=== PATIENT | male | born 1970 | race Caucasian/White ===

== ENCOUNTER 2017-05-12 09:26 | Emergency (ER) | payer OTHER, MEDICAID, SELFPAY ==
--- NOTE | 2017-05-12 09:11 | EKG12_ITS ---
Test Reason : CP Blood Pressure : / mmHG Vent. Rate : 055 BPM Atrial Rate : 055 BPM P-R Int : 170 ms QRS Dur : 106 ms QT Int : 416 ms P-R-T Axes : 048 -61 046 degrees QTc Int : 397 ms Sinus bradycardia Left axis deviation Abnormal ECG Confirmed by MARIN CORTEZ, DENEEN ([id number]), editor book AMRIT MCALLISTER ([id number]) on 05/16/2017 4:40:20 PM Referred By: CHAPINCITO Confirmed By:DENEEN FUNES MD
--- NOTE | 2017-05-12 11:30 | RAD_ITS ---
STUDY: X-RAY CHEST REASON FOR EXAM: Male, 47 years old. Shortness of breath. Weakness. Chest pain. TECHNIQUE: PA and lateral views of the chest. COMPARISON: None. FINDINGS: EKG electrodes are seen. The lungs are clear and expanded. There is no demonstrated pleural abnormality. Normal size heart. Normal mediastinum and sue. Normal visualized pulmonary arteries. Normal visualized aortic arch and descending thoracic aorta. Normal visualized thoracic spine. Normal visualized ribs, clavicles, and shoulders. There is no demonstrated abnormality of the visualized soft tissue structures of the upper abdomen. RAD/Chest PA and Lateral IMPRESSION: Normal x-ray examination of the chest. Electronically Signed: Jewel Lee MD at 12:09 EST Tel [phone], Service support ,
--- NOTE | 2017-05-12 12:02 | EKG12_ITS ---
Test Reason : CP Blood Pressure : / mmHG Vent. Rate : 044 BPM Atrial Rate : 044 BPM P-R Int : 176 ms QRS Dur : 118 ms QT Int : 448 ms P-R-T Axes : 055 -45 018 degrees QTc Int : 383 ms Marked sinus bradycardia Left anterior fascicular block Abnormal ECG Confirmed by MARIN CORTEZ, DENEEN ([id number]), non linear editor AMRIT MCALLISTER ([id number]) on 05/16/2017 4:41:13 PM Referred By: CHAPINCITO Confirmed By:DENEEN FUNES MD
[2017-05-13 09:22] LABS: Anion Gap 9 (5-15); BUN 23 mg/dL (7-18); Calcium,Total 8.7 mg/dL (8.5-10.1); Chloride 109 mmol/L (98-107); Creatinine, Serum 0.92 mg/dL (0.70-1.30); EST Glomerular Filtration Rate 93 mL/min (>60); Est Glom Filt Rate - Afr Amer 0 mL/min (>60); Glucose 106 mg/dL (70-110); Potassium 3.4 mmol/L (3.5-5.1); Sodium Level 140 mmol/L (136-145)
[2017-05-13 09:23] LABS: BNP,B-Type NATRIURETIC PEPTIDE 27.5 pg/mL (0-100)
[2017-05-13 10:17] LABS: Basophil% 0.2 % (0-1); Eosinophils% 0.4 % (0-5); Hematocrit 42.7 % (40-54); Hemoglobin 14.2 g/dl (13.0-16.5); Lymphocyte % 17.1 % (19-41); Mean Corp Hgb Conc 33.3 g/gl (32-36); Mean Corpuscular Hgb 30.6 pg (27.0-32.0); Mean Platelet Vol. 9.8 fl (6.2-12.0); Monocyte% 6.7 % (0-10); Neutrophil % 75.4 % (47-70); POSITIVE COUNT NO; POSITIVE DIFFERENTIAL NO; POSITIVE MORPHOLOGY NO; Platelet Count 213 K/mm3 (150-450); RBC Distribution Width CV 12.6 % (11.6-14.6); RBC Distribution Width SD 42.2 fl (35.1-43.9); Red Blood Count 4.64 M/mm3 (4.6-6.2); White Blood Count 4.9 K/mm3 (4.4-11.0)
[2017-05-13 10:18] LABS: Absolute Lymphocyte Count 0.84 X10^3/ul (0.83-4.51); Absolute Neutrophil Count 3.7 X10^3/uL (2.0-7.7); Basophil# 0.01 X10^3/uL; Eosinophil# 0.02 X10^3/uL; Lymphocyte # 0.84 X10^3/ul (4.0); Monocyte# 0.33 X10^3/uL; Neutrophil # 3.71 X10^3/uL (2.7-7.7)
--- NOTE | 2017-07-08 07:30 | ED.VISSUMM ---
- ER Visit Summary Date of Service: 07/08/17 Chief Complaint: [Chest pain] History of Present Illness: The patient is a 47 M [presents to the emergency department with complaint of chest discomfort that started yesterday. Patient complains of shortness of breath and nausea with it. Patient states that his pain radiates to the arms at times. While driving to work this morning he developed chest pain and increasing shortness of breath. Patient states that he had angioplasty 1 month ago at [facility] in [place]. Patient has a history of [place] and coronary artery disease. Patient has 2 cardiac stents. Patient has a history of hypertension, high cholesterol, and anxiety. Patient denies recent travel or surgery. Patient's pain is currently a 7 out of 10.] Physical Examination: HEENT-PERRLA, EOMI. Cranial nerves II through XII grossly intact. TMs clear. Mucous membranes moist. No adenopathy. Cardiovascular-regular rate and rhythm without murmur or ectopy Lungs-clear to auscultation, chest wall stable without crepitus or subcu emphysema Abdomen-normoactive bowel sounds, soft, nontender, no rebound or rigidity, no peritoneal signs. Extremities-intact ?4, normal range of motion, normal pulses, atraumatic] Test Results: [EKG obtained showed a sinus rhythm with a ventricular rate of 55 bpm with no acute ST segment changes noted. Repeat EKG was unchanged. CBC with differential showed a white blood cell count of 4.9, hemoglobin 14, hematocrit 42, platelets 213. Chemistries unremarkable other than a slightly depressed potassium at 3.4. Troponin was less than 0.015. BMP was normal at 27.5. Chest x-ray was normal. Emergency Department Course and Treatment: [While in the department patient received aspirin and sublingual nitroglycerin which did improve his pain down to 2 out of 10.] Treatment Plan: [Admit for further workup and evaluation of his chest pain.] Disposition: [Admit] Impression: [Chest pain-rule out acute coronary syndrome] This note was generated with [employer] dictation software. It may contain incorrect words, spelling, and punctuation that were not noted in review of the chart prior to signing ED Disposition - Plan for ED Patient: Disposition: Referrals: Romeo Jonas DO [Primary Care Provider] -
--- NOTE | 2017-07-08 07:34 | ED.DCSUM_ITS ---
- ER Visit Summary Date of Service: 07/08/17 Chief Complaint: [Chest pain] History of Present Illness: The patient is a 47 M [presents to the emergency department with complaint of chest discomfort that started yesterday. Patient complains of shortness of breath and nausea with it. Patient states that his pain radiates to the arms at times. While driving to work this morning he developed chest pain and increasing shortness of breath. Patient states that he had angioplasty 1 month ago at [facility] in [place]. Patient has a history of [place] and coronary artery disease. Patient has 2 cardiac stents. Patient has a history of hypertension, high cholesterol, and anxiety. Patient denies recent travel or surgery. Patient's pain is currently a 7 out of 10.] Physical Examination: HEENT-PERRLA, EOMI. Cranial nerves II through XII grossly intact. TMs clear. Mucous membranes moist. No adenopathy. Cardiovascular-regular rate and rhythm without murmur or ectopy Lungs-clear to auscultation, chest wall stable without crepitus or subcu emphysema Abdomen-normoactive bowel sounds, soft, nontender, no rebound or rigidity, no peritoneal signs. Extremities-intact ?4, normal range of motion, normal pulses, atraumatic] Test Results: [EKG obtained showed a sinus rhythm with a ventricular rate of 55 bpm with no acute ST segment changes noted. Repeat EKG was unchanged. CBC with differential showed a white blood cell count of 4.9, hemoglobin 14, hematocrit 42, platelets 213. Chemistries unremarkable other than a slightly depressed potassium at 3.4. Troponin was less than 0.015. BMP was normal at 27.5. Chest x-ray was normal. Emergency Department Course and Treatment: [While in the department patient received aspirin and sublingual nitroglycerin which did improve his pain down to 2 out of 10.] Treatment Plan: [Admit for further workup and evaluation of his chest pain.] Disposition: [Admit] Impression: [Chest pain-rule out acute coronary syndrome] This note was generated with [employer] dictation software. It may contain incorrect words, spelling, and punctuation that were not noted in review of the chart prior to signing ED Disposition - Plan for ED Patient: Disposition: [facility] Referrals: Romeo Jonas DO [Primary Care Provider] -
== END 2017-05-13 17:00 | disposition short-term general hospital (02) ==
PROVIDERS: Emergency Provider Emergency Medicine; Family Provider Preventive Medicine Occupational Medicine; PCP Preventive Medicine Occupational Medicine
DX: R07.9 Chest pain, unspecified (principal); R06.02 Shortness of breath; I25.2 Old myocardial infarction; I10 Essential (primary) hypertension; I25.10 Atherosclerotic heart disease of native coronary artery without angina pectoris; Z98.61 Coronary angioplasty status; F41.9 Anxiety disorder, unspecified
CPT/HCPCS: 36415; 71020; 80048; 83880; 84484; 85025; 93005; 96360; 96361; 99285; A4216